=== PATIENT | male | born 1995 | race Caucasian/White ===

== ENCOUNTER 2017-10-01 15:05 | Emergency (ER) | payer OTHER ==
[~2017-10-01] VITALS: Ht 175.3 cm; Wt 85.7 kg
[2017-10-01] MEDS ORDERED: BENZ100C PO (15:55)
[2017-10-01] MEDS ORDERED: AZIT250T PO (15:55)
--- NOTE | 2017-10-01 15:55 | PHYS DOC ---
Adult General Chief Complaint Chief Complaint: cough and bloody sputum HPI HPI 22-year-old male patient without medical problem with history of smoking states he had sinus pain and nasal congestion since drove back from [place] on September 23 with frequent cough. Patient states he had 2 episodes of coughing bloody material for the last few days without fever and chills, chest pain, shortness of breath, nausea and vomiting, dizziness and other bleeding problem. Review of Systems Review of Systems Constitutional: Denies fever or chills [] Eyes: Denies change in visual acuity, redness, or eye pain [] HENT: Reports nasal congestion Respiratory: Reports cough and hemoptysis Cardiovascular: No additional information not addressed in HPI [] GI: Denies abdominal pain, nausea, vomiting, bloody stools or diarrhea [] : Denies dysuria or hematuria [] Musculoskeletal: Denies back pain or joint pain [] Integument: Denies rash or skin lesions [] Neurologic: Denies headache, focal weakness or sensory changes [] Endocrine: Denies polyuria or polydipsia [] All other systems were reviewed and found to be within normal limits, except as documented in this note. Allergies Allergies Allergies Coded Allergies Type Severity Reaction Last Updated Verified No Known Drug Allergies 10/01/17 No Physical Exam Physical Exam Constitutional: Well developed, well nourished, no acute distress, non-toxic appearance. [] HENT: Normocephalic, atraumatic, bilateral external ears normal, oropharynx moist, mild pharyngeal erythema, no oral exudates, nasal congestion and mild sinus tenderness] Eyes: PERRLA, EOMI, conjunctiva normal, no discharge. [] Neck: Normal range of motion, no tenderness, supple, no stridor. [] Cardiovascular:Heart rate regular rhythm, no murmur [] Lungs & Thorax: Bilateral breath sounds clear to auscultation [] Neurologic: Alert and oriented X 3, normal motor function, normal sensory function, no focal deficits noted. [] Psychologic: Affect normal, judgement normal, mood normal. [] EKG EKG [] Radiology/Procedures Radiology/Procedures [] [address] [address] IMAGING REPORT Signed PATIENT: MARGOT MONAE ACCOUNT: [id number] : 1995 LOCATION: ER AGE: 22 SEX: M EXAM STATUS: REG ER ORD. PHYSICIAN: TUTU MACARIO MD REASON: hemoptysis PROCEDURE: CHEST PA & LATERAL CHEST PA LATERAL History: Hemoptysis Comparison: None. Findings: 2 AP and single lateral views of the chest are submitted. There is no infiltrate, pneumothorax, or effusion. The cardiac silhouette is within normal limits in size. The trachea is in the midline. Impression: 1. There is no evidence of acute cardiopulmonary disease. Electronically signed by: Aminata Nichols MD (10/01/2017 4:01 PM) [id number] DICTATED AND SIGNED BY: AMINATA NICHOLS MD DATE: 10/01/17 1600 CC: MILVIA DAI; TUTU MACARIO MD ~ Course & Med Decision Making Course & Med Decision Making Pertinent Imaging studies reviewed. (See chart for details) Evaluation of patient in ER showed 22-year-old female patient with upper respiratory symptoms and few episode of hemoptysis for the last [address]. [address] had [address] travel by car from [place] but states he did not drive for a long time and denies any lower extremity pain or shortness of breath. Patient had unremarkable physical exam and chest x-ray. Plan discharge patient home to diagnose of upper respiratory infection and instruction to quit smoking. [] Dragon Disclaimer Dragon Disclaimer This electronic medical record was generated, in whole or in part, using a voice recognition dictation system. Departure Departure: Impression: Primary Impression: Upper respiratory infection Additional Impressions: Acute sinusitis Tobacco abuse Tobacco abuse counseling Hemoptysis Disposition: HOME, SELF-CARE (At 1553) Condition: STABLE Referrals: MILVIA DAI (PCP) Patient Instructions: Sinusitis, Smoking Cessation, Upper Respiratory Infection , Adult Additional Instructions: Drink plenty of liquids Follow-up with your primary care physician in 3-5 days Return to ER if not getting better Scripts Benzonatate (TESSALON PERLE) 100 Mg Capsule 1 CAP PO TID, #30 CAP Prov: TUTU MACARIO MD 10/01/17 Azithromycin (ZITHROMAX) 250 Mg Tablet 1 PKG PO UD, #1 PKG Prov: TUTU MACARIO MD 10/01/17 Problem Qualifiers TUTU MACARIO MD Oct 01, 2017 15:55
--- NOTE | 2017-10-01 16:04 | RAD ---
CHEST PA LATERAL History: Hemoptysis Comparison: None. Findings: 2 AP and single lateral views of the chest are submitted. There is no infiltrate, pneumothorax, or effusion. The cardiac silhouette is within normal limits in size. The trachea is in the midline. Impression: 1. There is no evidence of acute cardiopulmonary disease. Electronically signed by: Jamaal Nichols MD (10/01/2017 4:01 PM) [id number]
[2017-10-01 16:07] VITALS: BP 127/56
== END 2017-10-01 16:07 | disposition home or self-care (01) ==
LOC: ER 15:05
DX: J01.90 Acute sinusitis, unspecified (principal); R04.2 Hemoptysis; Z72.0 Tobacco use; Z71.6 Tobacco abuse counseling
CPT/HCPCS: 71046; 99284

== ENCOUNTER 2018-03-25 23:47 | Emergency (ER) | payer OTHER ==
[~2018-03-25] VITALS: Ht 175.3 cm; Wt 89.1 kg
[~2018-03-25 23:47] MED LIST: AZIT250T PO; BENZ100C PO
--- NOTE | 2018-03-25 23:50 | ED.ADGEN ---
Past History Past Medical History: No Pertinent History Past Surgical History: Other Alcohol Use: Occasionally Drug Use: None Adult General Chief Complaint Chief Complaint ".. I was throwing out some trash on Saturday.. and got a sting or bit on this Rt. forearm.. 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 Patient has a central sting or bite area right forearm. With patient has surrounding erythema 8 cm x 16 cm. It has expanded outside previous margin rings. Distal neurovascular intact. There is no striations or adenopathy. Patient has not had previous allergy to insect stings or bites. Patient normally healthy. Patient's vaccinations are up-to-date. No recent overseas travel. No other significant ill exposures. Patient normally follows at [facility]. Review of Systems Review of Systems Constitutional: Denies fever or chills [] Eyes: Denies change in visual acuity, redness, or eye pain [] HENT: Denies nasal congestion or sore throat [] Respiratory: Denies cough or shortness of breath [] Cardiovascular: No additional information not addressed in HPI [] GI: Denies abdominal pain, nausea, vomiting, bloody stools or diarrhea [] : Denies dysuria or hematuria [] Musculoskeletal: Denies back pain or joint pain [] Integument: Denies rash or skin lesions []except findings as per history of present illness Neurologic: Denies headache, focal weakness or sensory changes [] Endocrine: Denies polyuria or polydipsia [] All other systems were reviewed and found to be within normal limits, except as documented in this note. Family History Family History Noncontributory Current Medications Current Medications Current Medications Medications (Trade) Dose Ordered Sig/Ave Start Time Stop Time Status Last Admin Dose Admin Ceftriaxone Sodium (Rocephin Im) 1 gm 1X ONCE 03/26/18 00:15 03/26/18 00:16 DC 03/26/18 00:34 1 GM Diphenhydramine HCl (Benadryl) 50 mg 1X ONCE 03/26/18 00:15 03/26/18 00:16 DC 03/26/18 00:32 50 MG Famotidine (Pepcid) 20 mg 1X ONCE 03/26/18 00:15 03/26/18 00:16 DC 03/26/18 00:32 20 MG Hydrocodone Bitartrate/ Ibuprofen (Vicoprofen 7.5-200) 2 tab 1X ONCE 03/26/18 00:15 03/26/18 00:16 DC 03/26/18 00:30 2 TAB Prednisone (Prednisone) 50 mg 1X ONCE 03/26/18 00:15 03/26/18 00:16 DC 03/26/18 00:31 50 MG Trimethoprim/ Sulfamethoxazole (Bactrim Ds) 1 tab 1X ONCE 03/26/18 00:15 03/26/18 00:16 DC 03/26/18 00:34 1 TAB Allergies Allergies Allergies Coded Allergies Type Severity Reaction Last Updated Verified No Known Drug Allergies 10/01/17 No Physical Exam Physical Exam Constitutional: Well developed, well nourished, no acute distress, non-toxic appearance. [] HENT: Normocephalic, atraumatic, bilateral external ears normal, oropharynx moist, no oral exudates, nose normal. [] Eyes: PERRLA, EOMI, conjunctiva normal, no discharge. [] Neck: Normal range of motion, no tenderness, supple, no stridor. [] Cardiovascular:Heart rate regular rhythm, no murmur [] Lungs & Thorax: Bilateral breath sounds clear to auscultation []no wheezing appreciated Abdomen: Bowel sounds normal, soft, no tenderness, no masses, no pulsatile masses. [] Skin: Warm, dry, no erythema, no rash. []Except Area cellulitis and inflammation as per history of present illness Back: No tenderness, no CVA tenderness. [] Extremities: No tenderness, no cyanosis, no clubbing, ROM intact, no edema. [] Neurologic: Alert and oriented X 3, normal motor function, normal sensory function, no focal deficits noted. [] Psychologic: Affect anxious, judgement normal, mood normal. [] Current Patient Data Vital Signs Vital Signs Date Time Temp Pulse Resp B/P (MAP) Pulse Ox O2 Delivery O2 Flow Rate FiO2 03/25/18 23:50 98.0 75 18 100 Room Air EKG EKG [] Radiology/Procedures Radiology/Procedures [] Course & Med Decision Making Course & Med Decision Making Pertinent Labs and Imaging studies reviewed. (See chart for details). Massage area of cellulitis and insect sting with Polysporin 4 times a day until completely healed. Take Benadryl 50 mg 4 times a day. Take prednisone 50 mg a day for 5 days. Takes Zantac 50 mg twice a day. Take Bactrim DS twice a day for 7 days. Follow-up primary care. Return if any concerns. [] Final Impression Final Impression 1. Insect Sting 2. Cellulitis[] Dragon Disclaimer Dragon Disclaimer This electronic medical record was generated, in whole or in part, using a voice recognition dictation system. ROLANDO DUONG MD Mar 25, 2018 23:50
[2018-03-26] MEDS ORDERED: HYDR-79 PO (00:05)
[2018-03-26] MEDS ORDERED: IBUP400T18 PO (00:09)
[2018-03-26] MEDS ORDERED: PRED50TA PO (00:09)
[2018-03-26] MEDS ORDERED: DIPH25CA58 PO (00:09)
[2018-03-26] MEDS ORDERED: BACI28.34 TP (00:09)
[2018-03-26] MEDS ORDERED: SULF1TAB24 PO (00:09)
[2018-03-26] MEDS ORDERED: RANI150T21 PO (00:09)
[2018-03-26] MEDS ORDERED: diphenhydrAMINE HCL 25 MG CAPSULE PO ONE (00:15)
[2018-03-26] MEDS ORDERED: FAMOTIDINE 20 MG TABLET PO ONE (00:15)
[2018-03-26] MEDS ORDERED: cefTRIAXone IM 1 GM VIAL IM ONE (00:15)
[2018-03-26] MEDS ORDERED: predniSONE 10 MG TABLET PO ONE (00:15)
[2018-03-26] MEDS ORDERED: SMZ/TMP 800/160MG TABLET. PO ONE (00:15)
[2018-03-26] MEDS ORDERED: HYDROcodon/IBUPROFEN 7.5/200MG 1 TAB TABLET PO ONE (00:15)
[2018-03-26 01:03] VITALS: BP 115/48
== END 2018-03-26 01:06 | disposition home or self-care (01) ==
LOC: ER 23:47
DX: T63.481A Toxic effect of venom of other arthropod, accidental (unintentional), initial encounter (principal); L03.113 Cellulitis of right upper limb; Y92.89 Other specified places as the place of occurrence of the external cause
CPT/HCPCS: 96372; 99284; J0696; J7512; Q0163